=== PATIENT | female | born 1985 | race Caucasian/White ===

== ENCOUNTER 2016-11-04 05:39 | Inpatient (IN) | payer OTHER ==
[~2016-11-04] VITALS: Ht 172.7 cm; Wt 88.9 kg
[~2016-11-04 05:39] MED LIST: CeFAZolin Inj 2 GM in IV Premix 1 EACH IV ONE
[2016-11-04] MEDS ORDERED: Carboprost 250 mCg/mL Inj IM PRN ×2 (06:00→09:15)
[2016-11-04] MEDS ORDERED: Hemorrhage Kit, Post Partum XX ONE ×2 (06:00→09:15)
[2016-11-04] MEDS ORDERED: Oxytocin 10 Unit/mL Inj IM PRN ×2 (06:00→09:15)
[2016-11-04] MEDS ORDERED: Sodium Citrate-Citric Acid 15 mL Solution PO SCH (06:00)
[2016-11-04] MEDS ORDERED: Methylergonovine 0.2 mg/mL Inj IM PRN ×2 (06:00→09:15)
[2016-11-04] MEDS: Lactated Ringer's 1,000 ML IV SCH ×3 (06:33→09:03)
[2016-11-04 06:53] LABS: Mean Corpuscular Hemoglobin 29.2 pg (27.0-35.0); Mean Corpuscular Volume 86.1 fL (81-100)
[2016-11-04] MEDS ORDERED: Morphine PF 1 mg/mL 10 mL Inj ONE (07:21)
--- NOTE | 2016-11-04 07:21 | PCM.HPANE ---
Patient Data Surgeon Admitting Provider:Jose Alberto Crouch MD Attending Provider:Jose Alberto Crouch MD Primary Care Physician:Arelis Other Provider:Fox Chow Anesthesia Reason for Visit primary for breech primary for breech Ht/WT & BMI Body Mass Index Allergies Coded Allergies: No Known Allergies (Unverified , 11/04/16) Diabetes History Hx Diabetes?: No MRSA MRSA: No History History of ENT Problems?: No Hx of Heart Problems?: No Hx of Respiratory Problem?: No Hx Neurologic Problems?: No Hx of GI Problems?: No Hx of Problems?: No Female Hx: Positive for:: Currently Other History/Comment Breach, uncomplicated Hx Musculoskeletal Problems?: No Hx of Psycho/Social Problems?: No Hx Surgeries?: No Hx Any Other Health Problems?: No Hx Alcohol Use: NoHx Substance Use: No Stop/Bang Treated for Sleep Apnea?: No Do You Have a CPAP Machine?: No Risk Assessment Category Category 1A: Patient has history of documented sleep apnea, and HAS NOT received any narcotic, sedative or anesthesia administration during this stay. Category 1B: Patient has history of documented sleep apnea, and HAS received any narcotic , sedative or anesthesia administration during this stay Category 2: Patient has SUSPECTED Obstructive Sleep Apnea, and HAS received any narcotic , sedative or anesthesia administration during this stay. Category 3: Patient has SUSPECTED Obstructive Sleep Apnea and HAS NOT received narcotic, sedative or anesthesia administration during this stay. Category 4: Outpatient in Procedural Areas with known sleep apnea or who screen positive for High Risk via the STOP/BANG questionnaire. Exam Exam General Appearance: Alert, Oriented X3, Cooperative HEENT/AIRWAY: MP 2 Lungs: Clear to Auscultation Heart: Exam Unremarkable Meds/Labs/Diagnostics Admission Meds Current Medications Lactated Ringer's (Lr) 1,000 ml @ 125 mls/hr Q8H IV Last administered on t 06:34; Start 11/04/16 at 06:00; Stop 11/04/16 at 13:59 Labs Test 11/04/16 06:18 White Blood Count 13.3th/mm3 (3.8-10.1) Red Blood Count 4.39mil/mm3 (3.90-5.20) Hemoglobin 12.8g/dL (12.0-15.6) Hematocrit 37.8% (35.0-46.0) Mean Corpuscular Volume 86.1fL (81-100) Mean Corpuscular Hemoglobin 29.2pg (27.0-35.0) Mean Corpuscular Hemoglobin Concent 33.9% (32.0-37.0) Red Cell Distribution Width 12.9% (12.3-15.4) Platelet Count 227bil/L (150-400) Plan Impression Patient chart reviewed, patient interviewed and anesthestic plan with risks, benefits, and alternatives discussed, and informed consent obtained. ASA Physical Status: ASA2 Mod Systemic Disease Anesthetic Plan: SAB Bene/Risks/Altern/Consents: Yes HP Complete Prior to Induction: Yes Jose Alberto Fish MD Nov 04, 2016 07:21
--- NOTE | 2016-11-04 08:59 | PCM.ANEP1 ---
Post Anesthesia Phase 1 PACU Phase 1 Assessment Anesthetic Administered: SAB Level of Alertness: Awake, talking LOBO's with Equal Strength: No Pain: No Nausea or Vomiting: No Oxygen Delivery: Room Air Lungs: Clear to Auscultation Dermatome Level: T8 (Costal Margin) Jose Alberto Fish MD Nov 04, 2016 08:59
[2016-11-04] MEDS ORDERED: Atropine 0.4 mg/mL Inj IV PRN (09:00)
[2016-11-04] MEDS ORDERED: EPHEDrine Sulfate 50 mg/mL Inj IVPUSH PRN (09:00)
[2016-11-04] MEDS ORDERED: fentaNYL-PF 50 mCg/mL 2 mL Inj IVPUSH PRN (09:00)
[2016-11-04] MEDS ORDERED: Lactated Ringer's 1,000 ML IV SCH (09:12)
[2016-11-04] MEDS ORDERED: Acetaminophen IV 1,000 MG in IV Premix 1 EACH IV PRN (09:15)
[2016-11-04] MEDS ORDERED: Sodium Chloride LOK Flush 10 mL Syringe IVFLUSH PRN (09:15)
[2016-11-04] MEDS ORDERED: HYDROcodone-APAP 5-325 mg Tablet PO PRN (09:15)
[2016-11-04] MEDS ORDERED: oxyCODONE-Acetamin 5-325 mg Tablet PO PRN (09:15)
[2016-11-04] MEDS ORDERED: hydrOXYzine Pamoate 25 mg Capsule PO PRN (09:15)
[2016-11-04] MEDS ORDERED: LANOlin HPA 7 Gm Ointment TOPICAL PRN (09:15)
[2016-11-04] MEDS ORDERED: Oxytocin 30 Units/500 mL LR 30 UNITS in IV Premix 1 EACH IV PRN (09:15)
--- NOTE | 2016-11-04 10:08 | OP ---
[address] [address] OPERATIVE REPORT PATIENT: MARTI VIVAR : 1985 MR#: [id number] ADMIT: 11/04/2016 JOB ID: [id number] DATE OF SURGERY: 11/04/2016 PREOPERATIVE DIAGNOSIS(ES): 1. 2, para 0 female at 39 weeks estimated gestational age. 2. Jamee breech presentation of fetus. POSTOPERATIVE DIAGNOSIS(ES): 1. 2, para 0 female at 39 weeks estimated gestational age. 2. Jamee breech presentation of fetus. PROCEDURE: Primary low transverse section via Pfannenstiel incision. SURGEON: Jose Alberto Crouch MD. LOOM FIXER APPRENTICE: MANFRED Osman. ANESTHESIA: Spinal. INDICATIONS: Breech presentation. COMPLICATIONS: None. FINDINGS: 1. Vigorous male weighing 8 pounds 2 ounces. 2. Normal uterus, tubes and ovaries. ESTIMATED BLOOD LOSS: 600 cc. URINE OUT: 50 cc of clear urine. INTRAVENOUS FLUIDS IN: 2200 cc of lactated Ringer's. PATHOLOGY: None. DETAIL: The patient was taken back to the OR, where spinal anesthesia was performed. Two grams of IV Ancef were given to her at that time. The patient was prepped and draped in the usual fashion and a procedural time-out was done. The usual skin incision was applied with a 15 blade and carried down to the underlying layer of fascia in a Pfannenstiel fashion. The fascia was incised in the midline, and this incision was carried laterally in each direction using the Li scissors. The fascia was clamped superiorly and inferiorly and dissected off the underlying layer of muscle with the Li scissors. Once this had been done, the midline was assessed and a hemostat was used to enter superiorly on the muscle in blunt fashion to spread the muscle. I used my finger to open this further and get into the peritoneal layer. Once this had been done, we stretched both muscle and peritoneal layer at once and created space for the surgery. The bladder blade was then inserted and the bladder flap was created over the top of the uterus using the Metzenbaum scissors. The bladder blade was reinserted and the uterine incision was made in the created space. This was done carefully to avoid trauma to the underlying fetus. Final entry through the muscle was with my finger. The amniotic sac was ruptured once I had extended the uterine incision laterally with the bandage scissors. The fluid was noted to be clear. The breech was present and noted to be a jamee breech. The hips were grasped in the usual fashion and the breech was delivered easily. The usual techniques were used to rotate the shoulders to deliver anterior and posterior shoulder and there was no head entrapment at any point. The infant delivered and shortly thereafter peed. Then, 30-60 seconds of cord clamp delay was performed. After this point the cord was indeed clamped and cut, and the infant was handed off to the awaiting nurses. The cord blood was sent for analysis. The placenta was then manually extracted, and the uterus was exteriorized and cleared of all membranes. The internal cervical os was opened using the ring forceps. These forceps were then set aside given that they had broken the sterile field. The patient's uterine incision was then closed using 1-0 chromic suture in a running, locked fashion. A second imbricating layer was performed. Additional bleeders were stopped using the Bovie. The bladder edge was examined and not found to be bleeding. The pelvis was irrigated, and the uterus was replaced back into the pelvis. The uterine incision was re-examined and found to be hemostatic. At this point, the abdominal muscles were closed using 2-0 chromic suture in a running fashion. The fascia was next closed using 0 Vicryl in a running fashion. The patient was not obese and so, the subcutaneous tissue was not closed. It was irrigated, however. After this, the skin was closed using mariam. A standard dressing was applied. Counts were correct x3. There were no other complications, and the patient was in excellent condition following the procedure.
[2016-11-04] MEDS ORDERED: Oxytocin 10 Unit/mL Inj ONE (10:33)
[2016-11-04] MEDS ORDERED: Phenylephrine/NS 100 mCg/mL 10 mL Syringe IVPUSH ONE (10:33)
--- NOTE | 2016-11-04 17:06 | PCM.ANEP2 ---
Post Anesthesia Evaluation ASA/CMS Post Anesthesia VS in Patient's Normal Range?: Yes Resp Stable; Airway Patent?: Yes CV Function & Hydration Stable: Yes Mental Status Recovered?: Yes Pain control Satisfactory?: Yes N/V Control Satisfactory?: Yes Jose Alberto Fish MD Nov 04, 2016 17:06
[2016-11-05 07:10] LABS: Mean Corpuscular Hemoglobin 28.9 pg (27.0-35.0); Mean Corpuscular Volume 86.1 fL (81-100)
--- NOTE | 2016-11-05 13:01 | PCM.DC.OB ---
Obstetrical Discharge Summary Date of Service Nov 05, 2016 Date of hospital admission Nov 04, 2016 at 05:39 Date of Discharge: Nov 05, 2016 Providers Admitting Physician: Jose Alberto Crouch MD Primary Care Physician: [place] Attending Physician: Jose Alberto Crouch MD Problems: (1) Status post primary low transverse section Status: Acute ICD Code: Z98.89 Consultations None Invasive procedures LTCS Date of Procedure: Nov 04, 2016 Hospital Course: Patient had a scheduled and recovered in excellent fashion. Follow-up plan See me in two weeks. Discharge Diet: No restrictions Discharge Activity-General: Pelvic Rest for 6 weeks, Be up and about, Balance rest and activity, No lifting >15 pounds for 2 weeks Jose Alberto Crouch MD Nov 05, 2016 13:01
--- NOTE | 2016-11-05 13:05 | PCM.DIOB ---
Obstetrical Disch Instruction Date of Service: Nov 05, 2016 Dates of Hospitalization Date of Hospital Admission Nov 04, 2016 at 05:39 Providers Admitting Physician: Jose Alberto Crouch MD Primary Care Physician: Arelis Attending Physician: Jose Alberto Crouch MD Discharge Diagnosis Problems: (1) Status post primary low transverse section Status: Acute ICD Code: Z98.89 Diet Discharge Diet: No restrictions Activity Discharge Activity-General: Pelvic Rest for 6 weeks, Activity as pain allows, No lifting >15 pounds for 2 weeks Dressing and Incisional Care Dressing Care: Other (mariam out in clinic on tuesday) Hygiene: May shower Follow Up Plan Follow-up Provider (F9): Jose Alberto Crouch MD Follow-up appointment: Weeks (2) Call your provider for: Fever or Chills, Heavy vaginal bleeding, Excessive constipation, Red painful breasts Jose Alberto Crouch MD Nov 05, 2016 13:05
[2016-11-05 13:24] VITALS: BP 107/59; PULSE 71; RESP 18
== END 2016-11-05 14:37 | disposition home or self-care (01) | DRG 766 ==
LOC: FBC 05:39 → EDSTATUS 07:15
PROVIDERS: ADMIT Family Medicine; ATTEND Family Medicine
PROC: 10D00Z1 Extraction of Products of Conception, Low, Open Approach (ICD-10-PCS; principal; 2016-11-04 07:15)
DX: O32.1XX0 Maternal care for breech presentation, not applicable or unspecified (principal); Z3A.39 39 weeks gestation of pregnancy; Z37.0 Single live birth